=== PATIENT | male | born 1995 | race African-American/Black ===

== ENCOUNTER 2020-06-30 22:14 | Emergency (ER) | payer SELFPAY | END 2020-07-01 01:45 | disposition left against medical advice (07) | LOC: ER 22:14 | DX: Z53.21 Procedure and treatment not carried out due to patient leaving prior to being seen by health care provider (principal) ==

== ENCOUNTER 2020-07-01 10:29 | Emergency (ER) | payer SELFPAY ==
[2020-07-01 11:41] LABS: APPEARANCE,URINE CLEAR; BILIRUBIN,URINE NEGATIVE (NEGATIVE); COLOR,URINE STRAW; GLUCOSE, URINE NEGATIVE (NEGATIVE); KETONES,URINE NEGATIVE (NEGATIVE); LEUKOCYTE ESTERASE,URINE NEGATIVE (NEGATIVE); NITRITE,URINE NEGATIVE (NEGATIVE); PROTEIN,URINE NEGATIVE (NEGATIVE); URINE SPECIFIC GRAVITY 1.003; UROBILINOGEN,URINE NEGATIVE mg/dL (<2.0)
[2020-07-01 13:16] LABS: CHLAM PCR NOT DETECTED (NOT DETECT)
[2020-07-01] MEDS ORDERED: AZITHROMYCIN 1 GM SUSP PACKET PO ONE (13:18)
--- NOTE | 2020-07-01 13:26 | ER Document Report ---
HPI - HPI Pain Level: Denies Notes: 24 y/o male presents today with pain with urination for approximately 2 to 3 days. He denies any blood in his urine. No abdominal pain No pelvic pain. No testicular pain. No low back pain. Has had no new sex partners. Had protected intercourse 1 week ago. Is not taking any medications. Denies any penile discharge or irritation. Denies any rashes or lesions. - REPRODUCTIVE Reproductive: DENIES: : Past Medical History - Social History Smoking Status: Current Every Day Smoker Chew tobacco use (# tins/day): No Frequency of alcohol use: Social Drug Abuse: None Family History: Reviewed & Not Pertinent Patient has homicidal ideation: No Vertical Provider Document - RESPIRATORY Respiratory: No Respiratory Distress - CARDIOVASCULAR Cardiovascular: Regular Rate, Regular Rhythm, No Murmur - GI/ABDOMEN Gastrointestinal: Abdomen Non-Tender - REPRODUCTIVE Male Genitalia: Normal Inspection Course - Vital Signs Vital signs: Temp Pulse Resp BP Pulse Ox 97.8 F 75 15 143/81 H 99 07/01/20 11:09 07/01/20 10:34 07/01/20 10:34 07/01/20 10:34 07/01/20 10:34 Discharge - Discharge Clinical Impression: Urethritis, nongonococcal Condition: Stable Disposition: HOME, SELF-CARE Instructions: Urethritis ([facility]) Additional Instructions: You have been diagnosed with urethritis. Your urinalysis has been unremarkable. A culture has been ordered. You have one additional test that is pending. This will test for an additional STI. This lab will not be resulted until tomorrow. Please call the hospital in regards to the lab results. Recommend you also follow-up with your primary care provider if your symptoms worsen. Please take ibuprofen every 6 hours for your pain. Please return to the emergency department for worsening symptoms or development of new symptoms.
[2020-07-01 13:52] VITALS: BP 129/84
== END 2020-07-01 13:57 | disposition home or self-care (01) ==
LOC: ER 10:29
DX: N34.2 Other urethritis (principal); F17.200 Nicotine dependence, unspecified, uncomplicated
CPT/HCPCS: 99283; 36415; 87086; 86592; 81001; 87491; 87591; Q0144